=== PATIENT | male | born 1950 | race Caucasian/White ===

== ENCOUNTER 2019-05-19 18:37 | Emergency (ER) | payer OTHER ==
[~2019-05-19] VITALS: Ht 167.6 cm; Wt 103.0 kg
[2019-05-19] MEDS ORDERED: TILENOR (18:49)
== END 2019-05-19 19:50 | disposition home or self-care (01) ==
LOC: ER 18:37
DX: M79.604 Pain in right leg (principal)

== ENCOUNTER 2019-05-20 08:04 | Emergency (ER) | payer OTHER ==
[~2019-05-20] VITALS: Ht 167.6 cm; Wt 103.0 kg
[~2019-05-20 08:04] MED LIST: TILENOR
== END 2019-05-20 15:05 | disposition home or self-care (01) ==
LOC: ER 08:04
DX: S83.8X1A Sprain of other specified parts of right knee, initial encounter (principal); R05 Cough; X50.9XXA Other and unspecified overexertion or strenuous movements or postures, initial encounter; Y93.89 Activity, other specified; Y92.89 Other specified places as the place of occurrence of the external cause; Y99.8 Other external cause status

== ENCOUNTER 2022-11-02 20:28 | Emergency (ER) | payer OTHER ==
[~2022-11-02] VITALS: Ht 167.6 cm; Wt 99.8 kg
== END 2022-11-02 22:57 | disposition home or self-care (01) ==
LOC: ER 20:28
DX: M62.830 Muscle spasm of back (principal)

== ENCOUNTER 2023-11-27 12:30 | Inpatient (IN) | payer OTHER ==
[~2023-11-27] VITALS: Ht 152.4 cm; Wt 66.2 kg
[2023-11-27] MEDS ORDERED: 0.9 % SODIUM CHLORIDE 1,000 ML IV SCH (14:05)
[2023-11-27] MEDS ORDERED: ONDANSETRON HCL 2 MG/ML VIAL IV STA (14:05)
[2023-11-27] MEDS ORDERED: FAMOTIDINE/PF 20 MG in 0.9 % SODIUM CHLORIDE 8 ML IV PUSH STA (14:05)
[2023-11-27 14:39] LABS: HEMOGLOBIN 15.2 g/dL (13-16.00); MEAN CELL VOLUME 83.8 fL (80.0-100.00); MEAN CORPUSCULAR HEMOGLOBIN 27.6 pg (27.00-32.0); PLATELET COUNT 268 K/uL (150-450); RED BLOOD COUNT 5.49 M/uL (4.00-6.00); RED CELL DISTRIBUTION WIDTH 15.6 % (11.5-14.5)
[2023-11-27 14:54] LABS: CALCIUM 9.7 mg/dL (8.5-10.1); CREATININE SERUM 1.3 mg/dL (0.70-1.30); GFR 53.81; POTASSIUM 3.5 mEq/L (3.5-5.1)
[2023-11-27 16:24] LABS: PH,URINE 6.5 (5.0-8.0); URINE APPEARANCE Clear; URINE BILIRRUBIN Small (NEGATIVE); URINE BLOOD Negative; URINE COLOR Dark Yellow; URINE GLUCOSE Negative (NEGATIVE); URINE LEUKOCYTE Trace; URINE NITRATE Negative; URINE PROTEIN Trace (NEGATIVE)
[2023-11-27 16:25] LABS: URINE BACTERIA 69.2 uL (0.0-1933); URINE EPITHELIAL CELLS 18.8 uL (0.0-38.8); URINE RBC 7.3 uL (0.0-20.8); URINE WBC 9.8 uL (0.0-23.2)
[2023-11-27 17:29] LABS: ALBUMIN 3.3 gm/dL (3.4-5.0); BILIRUBIN TOTAL 1.22 mg/dL (0.3-1.2); BILIRUBIN,CONJUGATED 0.68 mg/dL (0.0-0.2); BILIRUBIN,UNCONJUGATED 0.54 mg/dL (0.0-0.6); CALCIUM 8.5 mg/dL (8.5-10.1); CREATININE SERUM 1.2 mg/dL (0.70-1.30); GFR 59.02; GLOBULINA 3.4 G/DL (2.4-3.5); POTASSIUM 4.15 mEq/L (3.5-5.1); TOTAL PROTEIN 6.7 gm/dL (6.4-8.2)
[2023-11-27 17:30] LABS: INR 1.08; PARTIAL THROMBOPLASTIN TIME 26.1 SECONDS (22.0-34.0); PROTHROMBIN TIME 11.3 SECONDS (9.0-11.5)
[2023-11-27] MEDS ORDERED: PIPERACILLIN/TAZOBACTAM SODIUM 3.375 GM in 0.9 % SODIUM CHLORIDE 100 ML IV SCH (18:00)
[2023-11-27] MEDS ORDERED: FAMOTIDINE/PF 20 MG in 0.9 % SODIUM CHLORIDE 8 ML IV PUSH SCH (19:09)
[2023-11-27] MEDS ORDERED: RINGERS SOLUTION,LACTATED 1,000 ML IV SCH (19:15)
[2023-11-27] MEDS ORDERED: MEPERIDINE HCL/PF 25 MG/ML VIAL IM PRN (19:15)
[2023-11-27] MEDS ORDERED: ACETAMINOPHEN 500 MG GEL..CAP PO PRN (19:15)
[2023-11-27] MEDS ORDERED: ONDANSETRON HCL 4 MG in 0.9 % SODIUM CHLORIDE 50 ML IV PRN (19:15)
[2023-11-28 03:26] LABS: ABG PH 7.445 (7.35-7.45)
[2023-11-28 03:27] LABS: ABG PO2 76.5 mmHg (80-100); ABG pCO2 35.8 mmHg (35-45); BASE EXCESS 0.4 mmol/l; SaO2 95.8 %; Tco2 25.1 mmol/l; allen test SATISFACTORY; o2 21 %; puncture site RADIAL RIGHT
[2023-11-28] MEDS ORDERED: ENOXAPARIN SODIUM 40 MG/0.4 ML SYRINGE SUBCUTANEO SCH (09:00)
[2023-11-29 01:39] LABS: URINE APPEARANCE Clear; URINE BILIRRUBIN Negative (NEGATIVE); URINE COLOR Dark Yellow; URINE GLUCOSE Negative (NEGATIVE); URINE LEUKOCYTE Negative; URINE NITRATE Negative; URINE PROTEIN 30 (NEGATIVE)
[2023-11-29 01:43] LABS: URINE BACTERIA 7.5 uL (0.0-1933); URINE EPITHELIAL CELLS 10.3 uL (0.0-38.8); URINE RBC 20.8 uL (0.0-20.8); URINE WBC 6.1 uL (0.0-23.2)
[2023-11-29 08:33] LABS: URINE BLOOD Trace
[2023-11-29 09:16] LABS: ALBUMIN 2.8 gm/dL (3.4-5.0); BILIRUBIN TOTAL 1.14 mg/dL (0.3-1.2); CALCIUM 7.8 mg/dL (8.5-10.1); CREATININE SERUM 1.23 mg/dL (0.70-1.30); GFR 57.36; GLOBULINA 3.2 G/DL (2.4-3.5); PHOSPHOROUS 2.1 mg/dL (2.5-4.9); POTASSIUM 4.31 mEq/L (3.5-5.1); PROSTATIC SPECIFIC ANTIGEN 1.41 NG/ML (0.010-4.00)
[2023-11-29 09:21] LABS: C-REACTIVE PROTEIN 17.6 MG/DL (0.00-0.29); HEMATOCRIT 41.1 % (39.0-48.0); HEMOGLOBIN 13.4 g/dL (13-16.00); MEAN CELL VOLUME 84.8 fL (80.0-100.00); MEAN CORPUSCULAR HEMOGLOBIN 27.6 pg (27.00-32.0); MEAN CORPUSCULAR HGB CONC 32.6 g/dl (32.0-36.0); PLATELET COUNT 232 K/uL (150-450); RED BLOOD COUNT 4.84 M/uL (4.00-6.00); RED CELL DISTRIBUTION WIDTH 16.4 % (11.5-14.5)
[2023-11-30 07:35] LABS: CREATININE SERUM 0.74 mg/dL (0.70-1.30); GFR 103.11; POTASSIUM 3.71 mEq/L (3.5-5.1)
[2023-11-30 08:07] LABS: MAGNESIUM 1.4 mg/dL (1.8-2.4)
[2023-11-30] MEDS ORDERED: POTASSIUM PHOS,M-BASIC-D-BASIC 15 MM in 0.9 % SODIUM CHLORIDE 250 ML IV NR (09:15)
[2023-11-30] MEDS ORDERED: MAGNESIUM SULFATE IN WATER 50 ML IV ONE (10:09)
[2023-11-30 11:37] LABS: HEMATOCRIT 38.9 % (39.0-48.0); HEMOGLOBIN 12.6 g/dL (13-16.00); MEAN CELL VOLUME 84.4 fL (80.0-100.00); MEAN CORPUSCULAR HEMOGLOBIN 27.2 pg (27.00-32.0); MEAN CORPUSCULAR HGB CONC 32.3 g/dl (32.0-36.0); PLATELET COUNT 247 K/uL (150-450); RED BLOOD COUNT 4.61 M/uL (4.00-6.00); RED CELL DISTRIBUTION WIDTH 16.1 % (11.5-14.5)
[2023-11-30] MEDS ORDERED: CALCIUM GLUCONATE 100 MG/ML VIAL IV ONE (16:08)
[2023-12-01 07:23] LABS: HEMATOCRIT 35.5 % (39.0-48.0); HEMOGLOBIN 11.8 g/dL (13-16.00); MEAN CELL VOLUME 84.3 fL (80.0-100.00); MEAN CORPUSCULAR HGB CONC 33.2 g/dl (32.0-36.0); PLATELET COUNT 226 K/uL (150-450); RED BLOOD COUNT 4.21 M/uL (4.00-6.00); RED CELL DISTRIBUTION WIDTH 15.5 % (11.5-14.5)
[2023-12-02 10:11] LABS: hav igm Negative (Negative); hcv Non Reactive (Non Reactive); hep b c Negative (Negative)
[2023-12-03 13:18] LABS: HEMATOCRIT 40.2 % (39.0-48.0); HEMOGLOBIN 13.1 g/dL (13-16.00); MEAN CELL VOLUME 83.5 fL (80.0-100.00); MEAN CORPUSCULAR HEMOGLOBIN 27.1 pg (27.00-32.0); MEAN CORPUSCULAR HGB CONC 32.5 g/dl (32.0-36.0); PLATELET COUNT 270 K/uL (150-450); RED BLOOD COUNT 4.82 M/uL (4.00-6.00); RED CELL DISTRIBUTION WIDTH 15.6 % (11.5-14.5)
[2023-12-03 13:50] LABS: ALBUMIN 2.3 gm/dL (3.4-5.0); BILIRUBIN TOTAL 1.01 mg/dL (0.3-1.2); CREATININE SERUM 0.98 mg/dL (0.70-1.30); GFR 74.56; GLOBULINA 3.4 G/DL (2.4-3.5); MAGNESIUM 2.3 mg/dL (1.8-2.4); PHOSPHOROUS 2.3 mg/dL (2.5-4.9); POTASSIUM 3.17 mEq/L (3.5-5.1); TOTAL PROTEIN 5.7 gm/dL (6.4-8.2)
[2023-12-03] MEDS ORDERED: POTASSIUM PHOS M BASIC D BASIC IV ONE (17:00)
[2023-12-04 07:21] LABS: CALCIUM 7.8 mg/dL (8.5-10.1); CREATININE SERUM 0.86 mg/dL (0.70-1.30); GFR 86.69; POTASSIUM 3.52 mEq/L (3.5-5.1)
[2023-12-05 11:11] LABS: ABG PH 7.484 (7.35-7.45); ABG PO2 67.8 mmHg (80-100); ABG pCO2 31.9 mmHg (35-45); BASE EXCESS 0.9 mmol/l; BICARBONATE 23.5 mmol/l (23-25); SaO2 94.8 %; Tco2 24.4 mmol/l
[2023-12-05 11:14] LABS: allen test SATISFACTORY; o2 21 %; puncture site RADIAL LEFT
[2023-12-05] MEDS ORDERED: BUPIVACAINE HCL/PF 0.5% 30ML ML ONE (13:32)
[2023-12-05] MEDS ORDERED: LIDOCAINE HCL/EPINEPHRINE 20 ML VIAL IJ ONE (13:32)
[2023-12-05] MEDS ORDERED: MORPHINE SULFATE 4 MG/ML CARTRIDGE IV SCH (17:00)
== END 2023-12-06 15:46 | disposition home or self-care (01) | DRG 418 ==
LOC: ER 12:30 → MEDJ 19:24
PROVIDERS: Emergency Medicine; General Practice; Internal Medicine; Internal Medicine Critical Care Medicine; Internal Medicine Geriatric Medicine; Internal Medicine Infectious Disease; Surgery; ADMIT Internal Medicine; ATTEND Internal Medicine
PROC: BW21YZZ Computerized Tomography (CT Scan) of Abdomen and Pelvis using Other Contrast (ICD-10-PCS; 2023-11-27)
PROC: BW40ZZZ Ultrasonography of Abdomen (ICD-10-PCS; 2023-11-27)
PROC: 4A12X4Z Monitoring of Cardiac Electrical Activity, External Approach (ICD-10-PCS; 2023-11-27)
PROC: BF37ZZZ Magnetic Resonance Imaging (MRI) of Pancreas (ICD-10-PCS; 2023-11-28)
PROC: B24BYZZ Ultrasonography of Heart with Aorta using Other Contrast (ICD-10-PCS; 2023-12-03)
PROC: 0FT44ZZ Resection of Gallbladder, Percutaneous Endoscopic Approach (ICD-10-PCS; principal; 2023-12-05 13:30)
DX: K85.90 Acute pancreatitis without necrosis or infection, unspecified (principal); J81.1 Chronic pulmonary edema; N17.9 Acute kidney failure, unspecified; R65.10 Systemic inflammatory response syndrome (SIRS) of non-infectious origin without acute organ dysfunction; J90 Pleural effusion, not elsewhere classified; J98.11 Atelectasis; K80.20 Calculus of gallbladder without cholecystitis without obstruction; E87.6 Hypokalemia; R09.02 Hypoxemia